=== PATIENT | female | born 1990 | race Caucasian/White ===

== ENCOUNTER 2016-09-26 19:05 | Emergency (ER) | payer OTHER ==
[~2016-09-26 19:05] MED LIST: DULOXETINE HCL60 MG PO; ERYTHROMYCIN O3.5 GM OD; FERROUS SULFATE PO; NAPHCON-A EYE D15 M1 OS; PRENATAL VITAMI1 TA3 PO; ZOLOFT100 MG PO
== END 2016-09-26 19:22 | disposition home or self-care (01) ==
LOC: SED 19:05
DX: J06.9 Acute upper respiratory infection, unspecified (principal); F17.210 Nicotine dependence, cigarettes, uncomplicated; Z79.899 Other long term (current) drug therapy
CPT/HCPCS: 99282

== ENCOUNTER 2017-03-09 16:33 | Emergency (ER) | payer OTHER ==
[~2017-03-09] VITALS: Ht 154.9 cm; Wt 59.0 kg
--- NOTE | ~2017-03-09 | US61 ---
[facility] A Service of [facility] RADIOLOGY TEXT RESULTS PATIENT: TOMAS TIPTON LOCATION: CFTX : 89 UNIT #: [id number] AGE: [address]: Manisha Leslie SEX: F ORDER DR: [id number] [facility] [address] [place], [place] [address] [id number] E MR#: [id number] Acc #: [id number] NAME: TOMAS TIPTON : 1990 SEX: F STUDY DATE/TIME: 03/09/2017 18:38 UNIT: CFTN ROOM: STUDY DESCRIPTION: US /Mat <14Wk / Attending Physician: Manisha Leslie P.A.-C. Ordering Physician: Manisha Leslie P.A.-C. Primary Care Physician: Alesha Cordova M.D. MEDICAL IMAGING REPORT This report is preliminary unless electronic signature is present EXAM Pelvic ultrasound, transabdominal and endovaginal HISTORY Pelvic pain and vaginal bleeding for 3 days. FINDINGS Ultrasound examination of the pelvis was performed with transabdominal and endovaginal technique. There are two very small intrauterine cysts, each measuring approximately 4 mm. 1 or both of these could be secondary to early intrauterine with very small gestational sac formation, representing approximately 5-week gestation. However, no pole or yolk sac is identified and continued clinical followup and serial beta hCG is recommended. No endometrial thickening or endometrial fluid. The uterine contour is normal. Multiple incidental small cysts in both ovaries. Blood flow is noted in both ovaries on color Doppler. No free fluid. IMPRESSION 1. Two very small intrauterine cysts, each measuring 4 mm. 1 or both of these could represent early intrauterine gestational sacs with estimated gestation of approximately 5 weeks. However, these are nonspecific and there is no associated yolk sac or pole and continued clinical followup and serial beta hCG is recommended. 2. Blood flow is noted in both ovaries on color Doppler. 3. No endometrial thickening or endometrial fluid. Dictated by... Sha Bliss M.D. THIS IS AN ELECTRONICALLY VERIFIED REPORT Sha Paolo Bliss M.D. at 03/10/2017 10:40 PM DFL/christopher [facility]. [facility] A Service of [facility] RADIOLOGY TEXT RESULTS PATIENT: TOMAS TIPTON [id number] [birth year] UNIT #: [id number] AGE: [address]: Manisha Leslie SEX: F ORDER DR: TD: 03/10/2017 16:51 JOB #: [id number] MEDICAL IMAGING REPORT Page 1 of 1 COPY
[2017-03-09 18:25] LABS: URINE SOURCE CLEAN CATCH
[2017-03-09 18:33] LABS: URINE APPEARANCE CLOUDY; URINE BILIRUBIN NEG (NEG); URINE BLOOD 3+ (NEG); URINE COLOR YELLOW; URINE GLUCOSE NEG (NEG); URINE KETONE NEG (NEG); URINE LEUKOCYTE ESTERASE 1+ (NEG); URINE NITRATE NEG (NEG); URINE PH 6.5 (5-8); URINE PROTEIN 1+ (NEG); URINE SPECIFIC GRAVITY 1.026 (1.003-1.035)
[2017-03-09 18:34] LABS: BASOPHIL% 0.5 % (0-2.5); EOSINOPHIL# 0.1 X10e3 (0-0.7); EOSINOPHIL% 1.1 % (0.0-7.0); HEMATOCRIT 42.3 % (35.0-45.0); HEMOGLOBIN 14.3 gm/dL (12.0-16.0); LYMPHOCYTE# 3.1 X10e3 (1.0-3.5); LYMPHOCYTE% 34.7 % (17.0-45.0); MEAN CORPUSCULAR HEMOGLOBIN 29.1 PG (28-34); MEAN CORPUSCULAR HGB CONC 33.9 g/dL (30-36); MONOCYTE# 0.4 X10e3 (0-1.0); NEUTROPHIL# 5.2 X10e3 (1.5-7.1); NEUTROPHIL% 58.7 % (40-75); PLATELET COUNT 242 X10e3 (140-420); RED BLOOD COUNT 4.92 X10e (3.90-5.30); RED CELL DISTRIBUTION WIDTH 13.4 % (11.0-15.5); WHITE BLOOD COUNT 8.8 X10e3 (4.0-10.5)
[2017-03-09 18:36] LABS: CULTURE INDICATED? YES; URBCS1 AUWI INNUM /[HPF] (0-2); URINE BACTERIA AUWI NEG (NEGATIVE); URINE SQUAMOUS EPITHELIAL CELL OCC /[HPF]
[2017-03-09 18:38] LABS: DIFF IND NO
== END 2017-03-09 19:49 | disposition home or self-care (01) ==
LOC: CFTX 16:33 → CED 16:33 → CFTX 17:45
PROVIDERS: Physician Assistant
DX: O20.0 Threatened abortion (principal); O23.11 Infections of bladder in pregnancy, first trimester; O99.331 Smoking (tobacco) complicating pregnancy, first trimester; F17.210 Nicotine dependence, cigarettes, uncomplicated; B19.20 Unspecified viral hepatitis C without hepatic coma; F32.9 Major depressive disorder, single episode, unspecified; Z3A.01 Less than 8 weeks gestation of pregnancy
CPT/HCPCS: 36415; 76801; 81003; 84702; 85025; 87086; 99284

== ENCOUNTER 2017-03-11 17:43 | Emergency (ER) | payer OTHER ==
[~2017-03-11] VITALS: Ht 154.9 cm; Wt 59.0 kg
== END 2017-03-11 22:23 | disposition left against medical advice (07) ==
LOC: CED 17:43
DX: Z53.21 Procedure and treatment not carried out due to patient leaving prior to being seen by health care provider (principal)

== ENCOUNTER 2017-03-11 20:28 | Emergency (ER) | payer OTHER ==
[~2017-03-11] VITALS: Ht 154.9 cm; Wt 59.0 kg
[2017-03-11 22:23] LABS: URINE SOURCE CLEAN CATCH
[2017-03-11 22:25] LABS: URINE APPEARANCE HAZY; URINE BILIRUBIN NEG (NEG); URINE BLOOD 3+ (NEG); URINE COLOR YELLOW; URINE GLUCOSE NEG (NORM); URINE KETONE NEG (NEG); URINE LEUKOCYTE ESTERASE 1+ (NEG); URINE NITRATE NEG (NEG); URINE PROTEIN 1+ (NEG)
[2017-03-11 22:26] LABS: MICRO INDICATED? YES
[2017-03-11 22:28] LABS: CULTURE INDICATED? YES; URINE BACTERIA 1+ (NEG); URINE MUCUS PRESENT; URINE RBC 25-50 /[HPF] (0-2); URINE SQUAMOUS EPITHELIAL CELL MODERATE /[HPF]
== END 2017-03-11 22:37 | disposition home or self-care (01) ==
LOC: SED 20:28
PROVIDERS: Nurse Practitioner
DX: O20.0 Threatened abortion (principal); O99.341 Other mental disorders complicating pregnancy, first trimester; O98.411 Viral hepatitis complicating pregnancy, first trimester; B19.20 Unspecified viral hepatitis C without hepatic coma; O99.331 Smoking (tobacco) complicating pregnancy, first trimester; F17.210 Nicotine dependence, cigarettes, uncomplicated; Z3A.01 Less than 8 weeks gestation of pregnancy
CPT/HCPCS: 36415; 81003; 84702; 84703; 87086; 87088; 99284